=== PATIENT | male | born 2000 | race Caucasian/White ===

== ENCOUNTER 2023-11-20 06:46 | Outpatient (OUT) | payer OTHER, SELFPAY ==
--- NOTE | 2023-11-20 06:50 | MR_ITS ---
The [address] [address] Patient Name: CHRISTINA BRODERICK MRN: [id number] date: 2000 Sex: M Assigned Patient Location: [facility] Current Patient Location: Accession/Order Number: [id number] Exam Date: 11/20/2023 07:35 Report Date: 11/23/2023 08:30 At the request of: NON-STAFF PHYSICIAN Procedure: MR ankle LT wo con HISTORY: Chronic pain in the posterior aspect of the left ankle radiating into the calf. MR ankle LT wo con: 11/20/2023 7:35 AM EDT COMPARISON: None. TECHNIQUE: Multiplanar, multisequence MRI images of the ankle were obtained without contrast. FINDINGS: LIGAMENTS: The anterior talofibular ligament appears within normal limits. The calcaneofibular ligament, posterior talofibular ligament, and distal tibiofibular ligaments appear within normal limits. The deltoid ligament complex appears within normal limits. TENDONS: No significant tendinopathy, tendon tear, or tenosynovitis is seen. SINUS TARSI AND TARSAL TUNNEL: No space-occupying mass is seen in the tarsal tunnel or the sinus tarsi. BONES AND JOINTS: The bone marrow signal intensity is age appropriate. No unstable osteochondral defect of the tibiotalar joint is identified. 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 There are mild degenerative changes at its synchondrosis and there is a moderate amount of bone marrow edema-like signal adjacent to the synchondrosis. There is also a small amount of bone marrow edema within the adjacent posterior facet of the calcaneus at the posterior subtalar joint. There is a small amount of fluid within a joint recess posterior to the os trigonum. PLANTAR FASCIA: There is no abnormal thickening or abnormal signal intensity of the plantar fascia and there is no surrounding soft tissue edema to suggest plantar fasciitis. SOFT TISSUES: No significant soft tissue swelling is seen. MR/MR ankle LT wo con IMPRESSION: 1. 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 There is also a small amount of reactive bone marrow edema within the adjacent posterior facet of the calcaneus at the posterior subtalar joint. 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 2. No ligament injury or tendon abnormality is seen. Electronically authenticated by: PATRICK CLEMENS Date: 11/23/2023 08:30
--- NOTE | 2023-11-20 06:52 | XR_ITS ---
The [address] [address] Patient Name: CHRISTINA BRODERICK MRN: [id number] date: 2000 Sex: M Assigned Patient Location: [facility] Current Patient Location: [facility] Accession/Order Number: [id number] Exam Date: 11/20/2023 06:58 Report Date: 11/20/2023 07:29 At the request of: NON-STAFF PHYSICIAN Procedure: XR foreign body eye VIDHYA EXAMINATION: XR foreign body eye VIDHYA HISTORY: Foreign Body Eye COMPARISON: No relevant comparison available. FINDINGS: ORBITS: Negative for a metallic foreign body. OTHER: Negative. XR/XR foreign body eye VIDHYA IMPRESSION: 1. No metallic foreign body within the orbits. Electronically authenticated by: LYNN ENGEL Date: 11/20/2023 07:29
== END 2023-11-20 06:47 | disposition home or self-care (01) ==
LOC: RAD 06:46
PROVIDERS: PCP Internal Medicine
DX: M25.572 Pain in left ankle and joints of left foot (principal)
CPT/HCPCS: 70030; 73721